=== PATIENT | female | born 1995 | race Caucasian/White ===

== ENCOUNTER 2018-07-25 18:27 | Observation (INO) | END 2018-07-26 13:50 | disposition home or self-care (01) ==

== ENCOUNTER → 2019-02-24 | Outpatient (CLI) | payer OTHER ==
--- NOTE | 2019-02-27 00:22 | SP ---
DATE OF PROCEDURE: 02/24/2019 INDICATION: This is an outpatient study for this 23-year-old lady with history of ____ syncope possi alda convulsive syncope versus seizure. DESCRIPTION OF PROCEDURE: Routine EEG was recorded digitally. Gtutj-kk-vqjnq and evkyu-qa-xbe karsten ges were recorded and reviewed. All impedances were measured and recorded. Cap electrodes were plac ed in accordance to International 10-20 system of electrode placement. FINDINGS: Symmetrically distributed background activity of low to medium amplitude was seen througho ut the recording with frequency ranging between 8 to 10 cycles per second predominantly. This activi ty attenuates with eye opening. Photic stimulation produces normal driving. Hyperventilation elicit s no epileptiform activity. No epileptiform transients were seen. No signs of ongoing electrographi c seizures or lateralized slowing. IMPRESSION: Normal study. Please correlate clinically. Mild slowness of background observed when t he patient became drowsy and with some attenuation background. Dictated By: ESE LOWERY/DANISHA Conf#: [id number] DID#: [id number]
== END | disposition home or self-care (01) ==
LOC: EEG 12:52
PROVIDERS: ATTEND Family Medicine Adult Medicine
DX: R55 Syncope and collapse (principal)
CPT/HCPCS: 95819